=== PATIENT | female | born 1980 | race African-American/Black ===

== ENCOUNTER 2017-11-05 11:56 | Emergency (ER) | payer BC, OTHER | END 2017-11-05 12:23 | disposition home or self-care (01) | LOC: ER 11:56 | DX: T65.6X1A Toxic effect of paints and dyes, not elsewhere classified, accidental (unintentional), initial encounter (principal); T20.45XA Corrosion of unspecified degree of scalp [any part], initial encounter; L01.00 Impetigo, unspecified; Z88.1 Allergy status to other antibiotic agents; Z91.041 Radiographic dye allergy status; Z91.048 Other nonmedicinal substance allergy status; Y93.89 Activity, other specified; Y92.89 Other specified places as the place of occurrence of the external cause; Y99.8 Other external cause status | CPT/HCPCS: 99283 ==

== ENCOUNTER 2018-04-05 18:56 | Emergency (ER) | payer BC | END 2018-04-05 19:57 | disposition home or self-care (01) | LOC: ER 18:56 | DX: L23.9 Allergic contact dermatitis, unspecified cause (principal); Z90.49 Acquired absence of other specified parts of digestive tract; Z98.51 Tubal ligation status; Z88.1 Allergy status to other antibiotic agents; Z88.8 Allergy status to other drugs, medicaments and biological substances; Z91.048 Other nonmedicinal substance allergy status | CPT/HCPCS: 99283 ==

== ENCOUNTER 2018-06-28 10:27 | Emergency (ER) | payer BC ==
[~2018-06-28] VITALS: Ht 165.1 cm; Wt 120.2 kg
[2018-06-28 10:27] VITALS: BP 126/63
[~2018-06-28 10:27] MED LIST: CEFP200T PO; CEPH-264 PO; CIPR500T95 PO; FLUC150T PO; HYDR-971 PO; NAPR-514 PO; NAPR500T8 PO; ONDA4TAB10 PO; PRED20TA PO; SULF1TAB24 PO; TRIA15OI TP
[2018-06-28] MEDS ORDERED: HYDROcodone/APAP 5/325MG 1 TAB TABLET PO ONE (11:00)
--- NOTE | 2018-06-28 11:15 | RAD ---
EXAM: Left knee, 3 views. HISTORY: Fall. COMPARISON: None. FINDINGS: Bilateral, lateral and oblique views of the right knee are obtained. There is no fracture, dislocation or subluxation. No joint effusion is seen. IMPRESSION: No acute osseous finding. Electronically signed by: Chacha James MD (06/28/2018 11:12 AM) [facility]
[2018-06-28] MEDS ORDERED: NAPR500T8 PO (11:46)
--- NOTE | 2018-06-28 11:46 | PHYS DOC ---
Past Medical History Past Medical History: Cancer, Other Additional Past Medical Histor: Cervical CA-radiation and chemo. Past Surgical History: Cholecystectomy, , Tubal ligation, Other Additional Past Surgical Histo: Drainage tubes. Alcohol Use: None Drug Use: None Adult General Chief Complaint Chief Complaint: KNEE INJURY HPI HPI Patient is a 37 year old female presents to the emergency room with complaints of left knee pain after tripping and falling while going up stairs at approximately 9:30 this morning. She currently reports that her pain as a 6 out of 10 on the pain scale. She denies any numbness or tingling of her left lower extremity. She reports increased pain with range of motion and states that she is unable to bend her left knee or bear weight without limping. Patient states she has not taken any medication prior to arrival relief of her symptoms, on arrival she was given an ice pack. She denies falling down any steps. She denies any head, neck, or back pain or injury with the fall. Review of Systems Review of Systems Constitutional: Denies headache, dizziness, fever or chills [] Musculoskeletal: Denies neck or back pain, reports pain in the anterior left knee Neurologic: Denies headache, focal weakness or sensory changes [] All other systems were reviewed and found to be within normal limits, except as documented in this note. Current Medications Current Medications Current Medications Medications (Trade) Dose Ordered Sig/Bri Start Time Stop Time Status Last Admin Dose Admin Acetaminophen/ Hydrocodone Bitart (Lortab 5/325) 1 tab 1X ONCE 06/28/18 11:00 06/28/18 11:01 DC 06/28/18 11:16 1 TAB Allergies Allergies Allergies Coded Allergies Type Severity Reaction Last Updated Verified amoxicillin Allergy Severe swelling 12/31/15 Yes clavulanic acid Allergy Severe swelling 12/27/15 Yes Soap Allergy Intermediate 12/27/15 Yes povidone-iodine Allergy Intermediate 12/27/15 Yes Physical Exam Physical Exam Constitutional: Well developed, well nourished, no acute distress, non-toxic appearance, morbidly obese. [] HENT: Normocephalic, atraumatic, bilateral external ears normal, nose normal. [] Eyes: PERRLA, conjunctiva normal, no discharge. [] Skin: Warm, dry, no erythema, no rash. [] Extremities: No cyanosis, no clubbing; left anterior knee tender with palpation , mild edema of left knee, Patient did not tolerate ligamentous testing. Neurologic: Alert and oriented X 3, normal motor function, normal sensory function, no focal deficits noted. [] Psychologic: Affect normal, judgement normal, mood normal. [] Current Patient Data Vital Signs Vital Signs Date Time Temp Pulse Resp B/P (MAP) Pulse Ox O2 Delivery O2 Flow Rate FiO2 06/28/18 11:16 97 Room Air 06/28/18 10:27 98.4 56 14 126/63 (84) 98.4 EKG EKG [] Radiology/Procedures Radiology/Procedures IMAGING REPORT Signed PATIENT: TSERING CONRAD ACCOUNT: [id number] : 1980 LOCATION: ER AGE: 37 SEX: F EXAM STATUS: REG ER ORD. PHYSICIAN: EULALIO SHANNON APRN REASON: L knee pain after fall PROCEDURE: KNEE LEFT 3V EXAM: Left knee, 3 views. HISTORY: Fall. COMPARISON: None. FINDINGS: Bilateral, lateral and oblique views of the right knee are obtained. There is no fracture, dislocation or subluxation. No joint effusion is seen. IMPRESSION: No acute osseous finding. Electronically signed by: Chacha Mitchell MD (06/28/2018 11:12 AM) [facility] DICTATED and SIGNED BY: CHACHA MITCHELL MD DATE: 06/28/18 1111 [] Course & Med Decision Making Course & Med Decision Making Pertinent Labs and Imaging studies reviewed. (See chart for details) Patient is a 37-year-old female who presented to the emergency room with complaints of left knee pain after falling forward while going up some steps this morning. VSS, x-ray of left knee is negative for any acute fracture or dislocation. Patient reports some pain relief with hydrocodone that was given in the department. We will prescribe patient naproxen for home use, patient advised that she may continue to take Tylenol in addition to the pain medication being prescribed, patient verbalized an understanding of home care, follow-up, and return to ED instructions with no further questions or concerns. He has stated that she has crutches at home and her basement that she can use if needed. [] Dragon Disclaimer Dragon Disclaimer This electronic medical record was generated, in whole or in part, using a voice recognition dictation system. Departure Departure Impression: Primary Impression: Left knee injury Additional Impressions: Left knee pain Contusion of left knee Disposition: 01 HOME, SELF-CARE Condition: STABLE Referrals: JUNG CARRANZA MD Patient Instructions: Contusion, [id number], Knee Pain, [id number] Additional Instructions: Fill the prescription and take as directed, he may take Tylenol in addition to this medication for relief of pain. Recommend rest, ice, elevation, and application of the Vince wrap for comfort. Weightbearing as tolerated, you may use the crutches you have at home to help with ambulation. Follow-up with Dr. Carranza's office for further evaluation in one to 2 days. Return to the emergency room if her symptoms worsen. Scripts Naproxen (NAPROXEN) 500 Mg Tablet.dr 1 TAB PO BID for 10 Days, #20 TAB 0 Refills Prov: EULALIO SHANNON SCREW MACHINE OPERATOR 06/28/18 Problem Qualifiers Primary Impression: Left knee injury Encounter type: initial encounter Qualified Codes: S89.92XA - Unspecified injury of left lower leg, initial encounter Additional Impressions: Left knee pain Chronicity: acute Qualified Codes: M25.562 - Pain in left knee Contusion of left knee Encounter type: initial encounter Qualified Codes: S80.02XA - Contusion of left knee, initial encounter EULALIO SHANNON SCREW MACHINE OPERATOR Jun 28, 2018 11:46
== END 2018-06-28 12:00 | disposition home or self-care (01) ==
LOC: ER 10:27
DX: S80.02XA Contusion of left knee, initial encounter (principal); Z90.49 Acquired absence of other specified parts of digestive tract; Z98.890 Other specified postprocedural states; Z98.51 Tubal ligation status; Z88.1 Allergy status to other antibiotic agents; Z91.041 Radiographic dye allergy status; Z91.048 Other nonmedicinal substance allergy status; W01.0XXA Fall on same level from slipping, tripping and stumbling without subsequent striking against object, initial encounter; Y93.89 Activity, other specified; Y92.89 Other specified places as the place of occurrence of the external cause; Y99.8 Other external cause status
CPT/HCPCS: 73562; 99284

== ENCOUNTER 2018-10-06 23:16 | Emergency (ER) | payer BC ==
[~2018-10-06] VITALS: Ht 165.1 cm; Wt 108.9 kg
[~2018-10-06 23:16] MED LIST changes: +HYDR-3164 PO; -HYDR-971 PO
[2018-10-06 23:21] VITALS: BP 129/67
[2018-10-07] MEDS ORDERED: HYDR-2761 PO (00:45)
--- NOTE | 2018-10-07 00:45 | PHYS DOC ---
Past Medical History Past Medical History: Anxiety, Cancer, Other Additional Past Medical Histor: Cervical CA-radiation and chemo. Past Surgical History: Cholecystectomy, , Tubal ligation, Other Additional Past Surgical Histo: Drainage tubes. Alcohol Use: None Drug Use: None Adult General Chief Complaint Chief Complaint: SHOULDER INJURY HPI HPI Patient is a 38 year old AA female who presents to the emergency Department today complaining of right shoulder pain. Patient states last night at work she lifted a box that was heavier than she thought and felt a pull in her shoulder. She denies any trauma or fall. Patient states that the pain increases when she moves her arm past 45. She denies any numbness, tingling, or weakness of the affected extremity. She states she has been taking ibuprofen at home with no relief of her discomfort. Currently she rates her pain 8 out of 10 on the pain scale. Review of Systems Review of Systems Constitutional: Denies fever or chills [] Musculoskeletal: See history of present illness Integument: Denies rash or skin lesions [] Neurologic: Denies headache, focal weakness or sensory changes [] All other systems were reviewed and found to be within normal limits, except as documented in this note. Allergies Allergies Allergies Coded Allergies Type Severity Reaction Last Updated Verified amoxicillin Allergy Severe swelling 12/31/15 Yes clavulanic acid Allergy Severe swelling 12/27/15 Yes Soap Allergy Intermediate 12/27/15 Yes povidone-iodine Allergy Intermediate 12/27/15 Yes Physical Exam Physical Exam Constitutional: Well developed, well nourished, no acute distress, non-toxic appearance. [] HENT: Normocephalic, atraumatic, bilateral external ears normal, oropharynx moist, no oral exudates, nose normal. [] Eyes: PERRLA, EOMI, conjunctiva normal, no discharge. [] Neck: Normal range of motion, no tenderness, supple, no stridor. [] Cardiovascular:Heart rate regular rhythm, no murmur [] Lungs & Thorax: Bilateral breath sounds clear to auscultation [] Abdomen: Bowel sounds normal, soft, no tenderness, no masses, no pulsatile masses. [] Skin: Warm, dry, no erythema, no rash. [] Back: No tenderness, no CVA tenderness. [] Extremities: No tenderness, no cyanosis, no clubbing, ROM intact, no edema. [] Neurologic: Alert and oriented X 3, normal motor function, normal sensory function, no focal deficits noted. [] Psychologic: Affect normal, judgement normal, mood normal. [] Current Patient Data Vital Signs Vital Signs Date Time Temp Pulse Resp B/P (MAP) Pulse Ox O2 Delivery O2 Flow Rate FiO2 10/06/18 23:21 97.9 82 16 129/67 (87) 99 Room Air 97.9 EKG EKG [] Radiology/Procedures Radiology/Procedures X-ray of right shoulder was negative for any acute fracture or dislocation read by Dr. Christian[] Course & Med Decision Making Course & Med Decision Making Pertinent Labs and Imaging studies reviewed. (See chart for details) Diagnosis: Right shoulder strain. Prescription was written for hydrocodone 5/325 mg tablets #10. Patient was encouraged to rest the affected shoulder and apply ice as needed for pain relief. Follow-up with Dr. Lopez symptoms persist. Return to the emergency room if symptoms worsen. Recommended early mobilization of the shoulder to prevent frozen shoulder. Patient verbalized an understanding of home care, medications, follow-up, and return to ED instructions and was in agreement with the plan of care. [] Staff Physician Addendum: I was working in the ER during the course of this patient's visit. I was available for consultation as needed, but I was not directly involved in the care of this patient. Dragon Disclaimer Dragon Disclaimer This electronic medical record was generated, in whole or in part, using a voice recognition dictation system. Departure Departure Impression: Primary Impression: Right shoulder strain Disposition: 01 HOME, SELF-CARE Condition: STABLE Referrals: KYLE KANG (PCP) FELTON ZAMAN II, MD Patient Instructions: Shoulder Sprain Additional Instructions: Fill prescription(s) and use as directed. Recommend application of ice, elevation, and rest of affected extremity. Follow-up with Dr. Zaman if symptoms persist. Return to the ER if your symptoms worsen. Scripts Hydrocodone Bit/Acetaminophen (HYDROCODONE-APAP 5-325 ) 1 Each Tablet 1-2 TAB PO PRN Q6HRS PRN for PAIN for 2 Days, #10 TAB 0 Refills Prov: SHIVAEULALIO D CLAIMS COUNSEL 10/07/18 Problem Qualifiers Primary Impression: Right shoulder strain Encounter type: initial encounter Qualified Codes: S46.911A - Strain of unspecified muscle, fascia and tendon at shoulder and upper arm level, right arm , initial encounter EULALIO SHANNON APRN Oct 07, 2018 00:45 YAIMA CHRISTAIN MD Oct 07, 2018 01:21
--- NOTE | 2018-10-07 03:27 | RAD ---
[facility] right shoulder radiographs 10/06/2018 CLINICAL HISTORY: Right shoulder pain for one day. Lifting injury. AP internal and external rotation and transscapular digital radiographs of the right shoulder were obtained. No fracture or dislocation right shoulder is seen. No significant degenerative changes are noted. IMPRESSION: No acute osseous abnormality is seen. Electronically signed by: Levar Villareal MD (10/07/2018 3:23 AM) [facility]
== END 2018-10-07 01:03 | disposition home or self-care (01) ==
LOC: ER 23:16
DX: S46.811A Strain of other muscles, fascia and tendons at shoulder and upper arm level, right arm, initial encounter (principal); F41.9 Anxiety disorder, unspecified; Z90.49 Acquired absence of other specified parts of digestive tract; Z98.890 Other specified postprocedural states; Z98.51 Tubal ligation status; Z88.1 Allergy status to other antibiotic agents; Z91.041 Radiographic dye allergy status; Z91.048 Other nonmedicinal substance allergy status; X50.0XXA Overexertion from strenuous movement or load, initial encounter; Y93.89 Activity, other specified; Y92.89 Other specified places as the place of occurrence of the external cause; Y99.0 Civilian activity done for income or pay
CPT/HCPCS: 73030; 99283